=== PATIENT | male | born 1990 | race Caucasian/White ===

== ENCOUNTER 2019-09-27 14:45 | Emergency (ER) | payer OTHER ==
[2019-09-27 15:07] VITALS: RESP 16; TEMP 98.3
[2019-09-27 15:31] VITALS: BP 124/83; PULSE 69
[2019-09-27] MEDS ORDERED: LIDOCAINE 1% INJ 10MG/ML (20 ML MDV) SQ ONE (15:54)
--- NOTE | 2019-09-27 16:38 | ED ---
Skin/Abscess/FB HPI - General Chief complaint: Skin/Abscess/Foreign Body Stated complaint: Infection on arm Time Seen by Provider: 09/27/19 15:00 Source: patient Mode of arrival: ambulatory Limitations: no limitations - History of Present Illness Initial comments: 29-year-old male presenting for abscess of the right arm. Patient states that he had an abscess of the antecubital fossa that was incised and drained in half-way--he states that he is putting antibiotics and the abscess resolved. He states that about 3-4 days ago developed a second abscess nearby the initial infection he states it has become more swollen and red. Given the location patient was sent to the emergency department or incision and drainage and further evaluation. Patient denies any other complaints denies fever or flulike symptoms he denies IV drug use in the half-way facility. He denies ever breaking off a foreign body in the forearm. Patient denies swelling of the extremity. Remaining review systems negative upon arrival patient appears well no signs of acute distress. Patient has been on doxycycline for the past 2-3 days and was given 1 dose of ceftriaxone. - Related Data Home Medications Medication Instructions Recorded Confirmed Doxycycline [Vibramycin] 100 mg PO BID 09/27/19 09/27/19 cefTRIAXone [Rocephin] 1 gm IM DAILY 09/27/19 09/27/19 Previous Rx's Medication Instructions Recorded Cephalexin [Keflex] 500 mg PO Q6HR 10 Days #40 cap 09/27/19 Sulfamethox-Tmp 800-160Mg [Bactrim 1 tab PO Q12HR 10 Days #20 tab 09/27/19 DS 800-160 mg] Allergies Allergy/AdvReac Type Severity Reaction Status Date / Time No Known Allergies Allergy Verified 09/27/19 16:20 Review of Systems ROS Statement: Those systems with pertinent positive or pertinent negative responses have been documented in the HPI. ROS Other: All systems not noted in ROS Statement are negative. Past Medical History Past Medical History: No Reported History History of Any Multi-Drug Resistant Organisms: None Reported Past Surgical History: No Surgical Hx Reported Past Psychological History: No Psychological Hx Reported Smoking Status: Current every day smoker Past Alcohol Use History: None Reported Past Drug Use History: Heroin General Exam - General Exam Comments Initial Comments: General: The patient is awake and alert, in no distress, and does not appear acutely ill. Eye: +3 ,, pupils are equal, round and reactive to light, extra-ocular movements are intact. No nystagmus. There is normal conjunctiva bilaterally. No signs of icterus. Cardiovascular: There is a regular rate and rhythm. No murmur, rub or gallop is appreciated. Respiratory: Lungs are clear to auscultation, respirations are non-labored, breath sounds are equal. No wheezes, stridor, rales, or rhonchi. Musculoskeletal: Normal ROM, no tenderness with ROM at the right elbow joint. Strength 5/5. Sensation intact. Radial pulses equal bilaterally 2+. Neurological: A&O x 3. CN II-XII intact grossly, There are no obvious motor or sensory deficits. Coordination appears grossly intact. Speech is normal. Skin: Skin is warm and dry and no rashes. Large area of localized redness and fluctuance slightly distal to the right antecubital fossa radially. No active brainage or diffuse surrounding redness. Psychiatric: Cooperative, appropriate mood & affect, normal judgment. Limitations: no limitations Course Vital Signs 09/27/19 09/27/19 09/27/19 14:59 15:29 17:03 Temperature 98.3 F 98.3 F Pulse Rate 65 69 69 Respiratory 16 16 16 Rate Blood Pressure 124/81 124/83 124/83 O2 Sat by Pulse 99 100 100 Oximetry Procedures - Incision & Drainage Consent Obtained: verbal consent (performed by Dr. Bowers with myself at bedside) Indication: abscess Site: upper extremity (right forearm) Anesthetic Used: lidocaine 1% Amount (mLs): 2 I&D Cleaning Method: Chloroprep Sterile Field Used?: No Scalpel Used: #11 Needle Aspiration Performed?: Yes Irrigation Performed?: No I&D Drainage Obtained: Pus, Blood Culture Obtained?: Yes Patient Tolerated Procedure: well, no complications Medical Decision Making - Medical Decision Making 29-year-old male presents to respiratory for evaluation of abscess. I&D performed-large amount of purulent drainage I&D performed by my attending provid er Dr. Bowers. Antibiotic regime changed. Patient appears well and nontoxic. He is afebrile. At this time we feel patient is stable for discharge with reevaluation in 24-48 hours and return parameters as discussed. Patient verbalized understanding of discharge appearing well Disposition Clinical Impression: Abscess, Abscess of forearm, right Disposition: HOME SELF-CARE Condition: Good Instructions (If sedation given, give patient instructions): Abscess Incision and Drainage (ED) Additional Instructions: Please use medication as discussed. Please follow-up with family doctor in the next 2 days. Please return to emergency room if the symptoms increase or worsen or for any other concerns. Prescriptions: Sulfamethox-Tmp 800-160Mg [Bactrim DS 800-160 mg] 1 tab PO Q12HR 10 Days #20 tab Cephalexin [Keflex] 500 mg PO Q6HR 10 Days #40 cap Is patient prescribed a controlled substance at d/c from ED?: No Referrals: None,Stated [Primary Care Provider] - 1-2 days Time of Disposition: 16:55
== END 2019-09-27 17:04 | disposition home or self-care (01) ==
LOC: EC 14:45
DX: L02.413 Cutaneous abscess of right upper limb (principal); F17.200 Nicotine dependence, unspecified, uncomplicated; Z87.2 Personal history of diseases of the skin and subcutaneous tissue
CPT/HCPCS: 87070; 87205; 99283; 10060; J2001